=== PATIENT | female | born 1985 | race Caucasian/White ===

== ENCOUNTER → 2018-03-18 | Outpatient (CLI) | payer MEDICARE, OTHER ==
[2018-03-18 10:49] LABS: HCT 42.5 % (34.0-46.0); HGB 13.6 gm/dL (11.4-16.0); MCH 27.8 pg (25.0-35.0); MCV 86.7 fL (80.0-100.0); Mean Platelet Volume 6.6; Platelet Count 264 k/uL (150-450); WBC 4.7 k/uL (3.8-10.6)
[2018-03-18 11:34] LABS: T4, Free (Free Thyroxine) 0.95 ng/dL (0.78-2.19)
--- NOTE | 2018-03-18 16:50 | US ---
EXAMINATION TYPE: US pelvic complete DATE OF EXAM: 03/18/2018 COMPARISON: NONE CLINICAL HISTORY: [id number]. DUB; increased length of menstrual days; couple of menses in same month ; not on any hormones; getting bloodwork for TSH, and hormone evaluation TECHNIQUE: Transabdominal (TA). Transabdominal sonographic images of the pelvis were acquired. Date of LMP: 02/17/2018 EXAM MEASUREMENTS: Uterus: 9.5 x 5.3 x 4.2 cm Endometrial Stripe: 1.1 cm Right Ovary: 3.3 x 1.8 x 2.5 cm Left Ovary: 3.5 x 2.4 x 2.6 cm 1. Uterus: Anteverted; multiple Nabothian Cysts in REJI and cervix with largest in cervix = 1.1 x 0.8 x 0.8cm 2. Endometrium: thickness is wnl for day 30LMP 3. Right Ovary: multifollicular with largest simple = 0.6 x 0.8 x 0.6cm 4. Left Ovary: multifollicular : largest involuting cyst with peripheral ring of color flow = 1.6 x 1.9 x 1.5cm; largest simple cyst = 1.9 x 1.5 x 1.4cm Spectral, color and waveform Doppler imaging shows good arterial and venous flow within the ovaries ; there is no evidence for ovarian torsion. 5. Bilateral Adnexa: wnl 6. Posterior cul-de-sac: wnl IMPRESSION: 1. Left ovarian cyst.
== END ==
LOC: RADUSWWP 09:28
PROVIDERS: ATTEND Obstetrics & Gynecology
DX: N83.202 Unspecified ovarian cyst, left side (principal); N93.8 Other specified abnormal uterine and vaginal bleeding
CPT/HCPCS: 36415; 76856; 82670; 83001; 83002; 84146; 84439; 84443; 84479; 85027